=== PATIENT | female | born 1950 | race Caucasian/White ===

== ENCOUNTER 2017-11-07 10:34 | Outpatient (CLI) | payer MEDICARE, SELFPAY ==
[2017-11-07 11:06] LABS: Absolute Basophil Count 0.01 k/cumm (0.0-0.2); Absolute Eosinophil Count 0.09 k/cumm (0.0-0.7); Absolute Lymphocyte Count 1.51 k/cumm (1.2-3.4); Absolute Monocyte Count 0.71 k/cumm (0.11-0.7); Basophils % 0.2; Eosinophils % 1.7; HGB 13.6 g/dL (12.0-15.5); Lymphocytes % 28.4; Mean Corpuscular Hemoglobin 28.3 pg (27.0-33.0); Mean Corpuscular Volume 83.2 fL (80-95); Mean Platelet Volume 9.3 fL (8.0-11.0); Monocytes % 13.3; Neutrophils % 56.4; Platelet Count 199 x1000/uL (130-400); RBC 4.81 m/cumm (4.00-5.20); RBC Distribution Width 13.9 % (11.7-14.6); White Blood Cell Count 5.32 k/cumm (4.4-10.8)
[2017-11-07 11:18] LABS: ALT 13 U/L (12-78); AST 15 U/L (15-37); Albumin 3.9 g/dL (3.4-5.0); Alkaline Phosphatase 119 U/L (46-116); Anion Gap 8.5 mmol/L (3-11); BUN 7 mg/dL (7-18); Bilirubin, Total 0.3 mg/dL (0.2-1.0); CO2 28.5 mmol/L (21.0-32.0); CREATININE 0.56 mg/dL (0.55-1.02); Chloride 104 mmol/L (98-107); Glucose 96 mg/dL (70-100); Potassium 4.2 mmol/L (3.5-5.1); Sodium 141 mmol/L (136-145); Total Protein 7.5 g/dL (6.4-8.2)
== END 2017-11-07 10:35 ==
PROVIDERS: PCP Physician Assistant Medical; Visit Provider Internal Medicine Hematology & Oncology
DX: C82.18 Follicular lymphoma grade II, lymph nodes of multiple sites (principal)
CPT/HCPCS: 36415; 80053; 85025

== ENCOUNTER 2018-01-02 09:07 | Outpatient (CLI) | payer MEDICARE, SELFPAY ==
[2018-01-02 10:02] LABS: Abs Immature Grans 0.01 k/cumm (0.0-0.09); Absolute Basophil Count 0.02 k/cumm (0.0-0.2); Absolute Eosinophil Count 0.08 k/cumm (0.0-0.7); Absolute Lymphocyte Count 1.57 k/cumm (1.2-3.4); Absolute Monocyte Count 0.64 k/cumm (0.11-0.7); Absolute Neutrophil Count 3.22 k/cumm (1.2-6.7); Basophils % 0.4; Eosinophils % 1.4; HGB 12.8 g/dL (12.0-15.5); Immature Grans % 0.2; Lymphocytes % 28.3; Mean Corp. HGB Concentration 32.8 g/dL (32.0-36.0); Mean Corpuscular Hemoglobin 28.3 pg (27.0-33.0); Mean Corpuscular Volume 86.1 fL (80-95); Mean Platelet Volume 9.8 fL (8.0-11.0); Monocytes % 11.6; Neutrophils % 58.1; Platelet Count 209 x1000/uL (130-400); RBC 4.53 m/cumm (4.00-5.20); RBC Distribution Width 14.7 % (11.7-14.6); White Blood Cell Count 5.54 k/cumm (4.4-10.8)
[2018-01-02 10:22] LABS: ALT 14 U/L (12-78); AST 14 U/L (15-37); Albumin 3.7 g/dL (3.4-5.0); Alkaline Phosphatase 127 U/L (46-116); Anion Gap 9.4 mmol/L (3-11); BUN 12 mg/dL (7-18); Bilirubin, Total 0.3 mg/dL (0.2-1.0); CO2 28.6 mmol/L (21.0-32.0); CREATININE 0.48 mg/dL (0.55-1.02); Calcium 9.1 mg/dL (8.5-10.1); Chloride 104 mmol/L (98-107); Glucose 97 mg/dL (70-100); LDH 164 U/L (81-234); Potassium 4.2 mmol/L (3.5-5.1); Sodium 142 mmol/L (136-145); Total Protein 6.9 g/dL (6.4-8.2)
== END 2018-01-02 09:27 ==
PROVIDERS: PCP Physician Assistant Medical; Visit Provider Internal Medicine Hematology & Oncology
DX: C82.18 Follicular lymphoma grade II, lymph nodes of multiple sites (principal)
CPT/HCPCS: 80053; 83615; 85025

== ENCOUNTER 2018-03-06 09:20 | Outpatient (CLI) | payer MEDICARE, SELFPAY ==
[2018-03-06 09:52] LABS: Abs Immature Grans 0.01 k/cumm (0.0-0.09); Absolute Basophil Count 0.02 k/cumm (0.0-0.2); Absolute Eosinophil Count 0.08 k/cumm (0.0-0.7); Absolute Lymphocyte Count 1.71 k/cumm (1.2-3.4); Absolute Monocyte Count 0.57 k/cumm (0.11-0.7); Absolute Neutrophil Count 3.37 k/cumm (1.2-6.7); Basophils % 0.3; Eosinophils % 1.4; HCT 39.2 % (36.0-46.0); HGB 13.1 g/dL (12.0-15.5); Immature Grans % 0.2; Lymphocytes % 29.7; Mean Corp. HGB Concentration 33.4 g/dL (32.0-36.0); Mean Corpuscular Hemoglobin 29.2 pg (27.0-33.0); Mean Corpuscular Volume 87.3 fL (80-95); Mean Platelet Volume 9.2 fL (8.0-11.0); Monocytes % 9.9; Neutrophils % 58.5; Platelet Count 217 x1000/uL (130-400); RBC 4.49 m/cumm (4.00-5.20); RBC Distribution Width 13.5 % (11.7-14.6); White Blood Cell Count 5.76 k/cumm (4.4-10.8)
[2018-03-06 10:06] LABS: ALT 24 U/L (12-78); AST 18 U/L (15-37); Albumin 3.6 g/dL (3.4-5.0); Alkaline Phosphatase 148 U/L (46-116); Anion Gap 10.3 mmol/L (3-11); BUN 11 mg/dL (7-18); Bilirubin, Total 0.2 mg/dL (0.2-1.0); CO2 28.7 mmol/L (21.0-32.0); CREATININE 0.55 mg/dL (0.55-1.02); Chloride 103 mmol/L (98-107); Glucose 114 mg/dL (70-100); LDH 160 U/L (81-234); Sodium 142 mmol/L (136-145); Total Protein 7.1 g/dL (6.4-8.2)
== END 2018-03-06 09:40 ==
PROVIDERS: PCP Physician Assistant Medical; Visit Provider Internal Medicine Hematology & Oncology
DX: C82.18 Follicular lymphoma grade II, lymph nodes of multiple sites (principal)
CPT/HCPCS: 36415; 80053; 83615; 85025

== ENCOUNTER 2018-05-01 10:22 | Outpatient (CLI) | payer MEDICARE, SELFPAY ==
[2018-05-01 11:01] LABS: Absolute Basophil Count 0.01 k/cumm (0.0-0.2); Absolute Eosinophil Count 0.09 k/cumm (0.0-0.7); Absolute Neutrophil Count 2.68 k/cumm (1.2-6.7); Basophils % 0.2; Eosinophils % 1.8; HCT 38.2 % (36.0-46.0); HGB 12.6 g/dL (12.0-15.5); Lymphocytes % 31.5; Mean Corpuscular Hemoglobin 28.6 pg (27.0-33.0); Mean Corpuscular Volume 86.8 fL (80-95); Mean Platelet Volume 9.2 fL (8.0-11.0); Monocytes % 13.8; Neutrophils % 52.7; Platelet Count 229 x1000/uL (130-400); RBC Distribution Width 13.1 % (11.7-14.6); White Blood Cell Count 5.08 k/cumm (4.4-10.8)
[2018-05-01 11:14] LABS: ALT 15 U/L (12-78); AST 18 U/L (15-37); Albumin 3.5 g/dL (3.4-5.0); Alkaline Phosphatase 116 U/L (46-116); Anion Gap 5.4 mmol/L (3-11); BUN 11 mg/dL (7-18); Bilirubin, Total 0.2 mg/dL (0.2-1.0); CO2 31.6 mmol/L (21.0-32.0); CREATININE 0.62 mg/dL (0.55-1.02); Calcium 8.9 mg/dL (8.5-10.1); Chloride 104 mmol/L (98-107); Glucose 91 mg/dL (70-100); LDH 149 U/L (81-234); Sodium 141 mmol/L (136-145); Total Protein 6.9 g/dL (6.4-8.2)
== END 2018-05-01 10:42 ==
PROVIDERS: PCP Physician Assistant Medical; Visit Provider Nurse Practitioner Family
DX: C82.18 Follicular lymphoma grade II, lymph nodes of multiple sites (principal)
CPT/HCPCS: 36415; 80053; 83615; 85025

== ENCOUNTER 2018-08-07 09:34 | Outpatient (CLI) | payer MEDICARE, SELFPAY ==
[2018-08-07 10:22] LABS: Abs Immature Grans 0.01 k/cumm (0.0-0.09); Absolute Basophil Count 0.01 k/cumm (0.0-0.2); Absolute Eosinophil Count 0.16 k/cumm (0.0-0.7); Absolute Lymphocyte Count 1.35 k/cumm (1.2-3.4); Absolute Monocyte Count 0.41 k/cumm (0.11-0.7); Absolute Neutrophil Count 3.39 k/cumm (1.2-6.7); Basophils % 0.2; HCT 39.5 % (36.0-46.0); HGB 13.1 g/dL (12.0-15.5); Immature Grans % 0.2; Lymphocytes % 25.3; Mean Corp. HGB Concentration 33.2 g/dL (32.0-36.0); Mean Corpuscular Hemoglobin 28.6 pg (27.0-33.0); Mean Corpuscular Volume 86.2 fL (80-95); Monocytes % 7.7; Neutrophils % 63.6; Platelet Count 241 x1000/uL (130-400); RBC 4.58 m/cumm (4.00-5.20); RBC Distribution Width 13.8 % (11.7-14.6); White Blood Cell Count 5.33 k/cumm (4.4-10.8)
[2018-08-07 10:44] LABS: ALT 20 U/L (12-78); AST 18 U/L (15-37); Albumin 3.6 g/dL (3.4-5.0); Alkaline Phosphatase 128 U/L (46-116); Anion Gap 8.5 mmol/L (3-11); BUN 15 mg/dL (7-18); Bilirubin, Total 0.2 mg/dL (0.2-1.0); CO2 27.5 mmol/L (21.0-32.0); CREATININE 0.57 mg/dL (0.55-1.02); Calcium 9.1 mg/dL (8.5-10.1); Chloride 103 mmol/L (98-107); Glucose 121 mg/dL (70-100); LDH 150 U/L (81-234); Potassium 4.1 mmol/L (3.5-5.1); Sodium 139 mmol/L (136-145); Total Protein 7.2 g/dL (6.4-8.2)
== END 2018-08-07 09:54 ==
PROVIDERS: PCP Physician Assistant Medical; Visit Provider Internal Medicine Hematology & Oncology
DX: C82.18 Follicular lymphoma grade II, lymph nodes of multiple sites (principal)
CPT/HCPCS: 36415; 80053; 83615; 85025

== ENCOUNTER 2024-06-18 02:13 | Outpatient (RCR) | payer MEDICARE, SELFPAY ==
[2024-06-18 08:19] LABS: Abs Immature Grans 0.03 10^3/uL (0.0-0.06); Absolute Basophil Count 0.02 10^3/uL (0.0-0.2); Absolute Eosinophil Count 0.07 10^3/uL (0.0-0.7); Absolute Lymphocyte Count 1.02 10^3/uL (1.2-3.4); Absolute Monocyte Count 0.36 10^3/uL (0.1-0.8); Absolute Neutrophil Count 5.95 10^3/uL (1.2-6.7); Basophils % 0.3 %; Eosinophils % 0.9 %; HGB 14.4 g/dL (11.2-15.7); Immature Grans % 0.4 %; Lymphocytes % 13.7 %; MCH 29.2 pg (27.0-33.0); MCHC 33.5 % (32.0-36.0); MCV 87 fL (80-95); MPV 9.2 fL (8.0-11.0); Monocytes % 4.8 %; Neutrophils % 79.9 %; Platelet Count 196 10^3/uL (130-400); RBC 4.93 10^6/uL (3.93-5.22); RDW 13.2 % (11.7-14.6); RDW-SD 41.8 fL; WBC 7.45 10^3/uL (4.4-10.8)
[2024-06-18 08:37] LABS: ALT 20 U/L (14-59); AST 13 U/L (15-37); Albumin 3.6 g/dL (3.4-5.0); Alkaline Phosphatase 117 U/L (46-116); Anion Gap 10.6 mmol/L (3-11); BUN 5 mg/dL (7-18); Bilirubin, Total 0.5 mg/dL (0.2-1.0); CO2 27.4 mmol/L (21.0-32.0); CREATININE 0.8 mg/dL (0.55-1.02); Calcium 9.5 mg/dL (8.5-10.1); Chloride 105 mmol/L (98-107); Estimated GFR 77.75 (mL/min/1.73m2); Glucose 172 mg/dL (74-106); LDH 150 U/L (81-234); Potassium 3.7 mmol/L (3.5-5.1); Sodium 143 mmol/L (136-145); Total Protein 7.1 g/dL (6.4-8.2)
[2024-06-18] MEDS: Normal Saline Flush 10 ML SYR IVP (08:41)
== END 2024-06-23 23:59 | disposition home or self-care (01) ==
LOC: INF 02:13
PROVIDERS: PCP Physician Assistant Medical; Visit Provider Internal Medicine Hematology & Oncology
DX: C82.18 Follicular lymphoma grade II, lymph nodes of multiple sites (principal)
CPT/HCPCS: 36591; 80053; 83615; 85025

== ENCOUNTER 2024-07-23 01:24 | Outpatient (RCR) | payer MEDICARE, SELFPAY ==
[2024-07-09 10:19] LABS: Abs Immature Grans 0.02 10^3/uL (0.0-0.06); Absolute Basophil Count 0.04 10^3/uL (0.0-0.2); Absolute Eosinophil Count 0.16 10^3/uL (0.0-0.7); Absolute Lymphocyte Count 0.57 10^3/uL (1.2-3.4); Absolute Monocyte Count 0.54 10^3/uL (0.1-0.8); Absolute Neutrophil Count 5.14 10^3/uL (1.2-6.7); Basophils % 0.6 %; Eosinophils % 2.5 %; HCT 41.6 % (36.0-46.0); HGB 13.9 g/dL (11.2-15.7); Immature Grans % 0.3 %; Lymphocytes % 8.8 %; MCHC 33.4 % (32.0-36.0); MCV 87 fL (80-95); MPV 9.1 fL (8.0-11.0); Monocytes % 8.3 %; Neutrophils % 79.5 %; Platelet Count 195 10^3/uL (130-400); RBC 4.79 10^6/uL (3.93-5.22); RDW 13.5 % (11.7-14.6); RDW-SD 42.4 fL; WBC 6.47 10^3/uL (4.4-10.8)
[2024-07-09] MEDS: Normal Saline Flush 10 ML SYR IVP (10:22)
[2024-07-09 10:34] LABS: ALT 21 U/L (14-59); AST 15 U/L (15-37); Albumin 3.4 g/dL (3.4-5.0); Alkaline Phosphatase 114 U/L (46-116); Anion Gap 8.8 mmol/L (3-11); BUN 9 mg/dL (7-18); Bilirubin, Total 0.4 mg/dL (0.2-1.0); CO2 27.2 mmol/L (21.0-32.0); CREATININE 0.8 mg/dL (0.55-1.02); Calcium 9.3 mg/dL (8.5-10.1); Chloride 105 mmol/L (98-107); Estimated GFR 77.27 (mL/min/1.73m2); Glucose 188 mg/dL (74-106); LDH 139 U/L (81-234); Potassium 3.7 mmol/L (3.5-5.1); Sodium 141 mmol/L (136-145); Total Protein 6.9 g/dL (6.4-8.2)
[2024-07-23] MEDS: Normal Saline Flush 10 ML SYR IVP (09:18)
[2024-07-23 09:41] LABS: Abs Immature Grans 0.01 10^3/uL (0.0-0.06); Absolute Basophil Count 0.03 10^3/uL (0.0-0.2); Absolute Eosinophil Count 0.18 10^3/uL (0.0-0.7); Absolute Lymphocyte Count 0.59 10^3/uL (1.2-3.4); Absolute Monocyte Count 0.45 10^3/uL (0.1-0.8); Basophils % 0.6 %; Eosinophils % 3.8 %; HCT 39.9 % (36.0-46.0); HGB 13.5 g/dL (11.2-15.7); Immature Grans % 0.2 %; Lymphocytes % 12.4 %; MCH 29.6 pg (27.0-33.0); MCHC 33.8 % (32.0-36.0); MCV 88 fL (80-95); MPV 9.1 fL (8.0-11.0); Monocytes % 9.5 %; Neutrophils % 73.5 %; Platelet Count 150 10^3/uL (130-400); RBC 4.56 10^6/uL (3.93-5.22); RDW 13.4 % (11.7-14.6); RDW-SD 42.9 fL; WBC 4.76 10^3/uL (4.4-10.8)
[2024-07-23 09:58] LABS: ALT 22 U/L (14-59); AST 19 U/L (15-37); Albumin 3.5 g/dL (3.4-5.0); Alkaline Phosphatase 109 U/L (46-116); Anion Gap 10.8 mmol/L (3-11); BUN 9 mg/dL (7-18); Bilirubin, Total 0.4 mg/dL (0.2-1.0); CO2 26.2 mmol/L (21.0-32.0); CREATININE 0.7 mg/dL (0.55-1.02); Calcium 9.1 mg/dL (8.5-10.1); Chloride 105 mmol/L (98-107); Glucose 199 mg/dL (74-106); Potassium 3.8 mmol/L (3.5-5.1); Sodium 142 mmol/L (136-145); Total Protein 6.8 g/dL (6.4-8.2)
[2024-07-23 10:26] LABS: LDH 147 U/L (81-234)
== END 2024-07-23 23:59 | disposition home or self-care (01) ==
LOC: INF 01:24
PROVIDERS: PCP Physician Assistant Medical; Visit Provider Internal Medicine Hematology & Oncology
DX: C82.18 Follicular lymphoma grade II, lymph nodes of multiple sites (principal); Z45.2 Encounter for adjustment and management of vascular access device
CPT/HCPCS: 36591; 80053; 83615; 85025

== ENCOUNTER 2024-08-15 16:52 | Emergency (ER) | payer MEDICARE, SELFPAY ==
[2024-08-15] VITALS (18 sets, daily range): BP systolic 116–138; BP diastolic 74–82; PULSE 63–83; RESP 16–19; TEMP 36.7–36.8; O2SAT 95–98
--- NOTE | 2024-08-15 17:00 | RT.EKG_ITS ---
APPROVED REPORT Exam: Resting ECG Reason for Exam: chest pain Patient Location: E HR:76 bpm ECG Measurements Heart Rate 76 AXIS MN 179 P 51 QRSd 91 QRS -90 QT 405 T 57 QTc 456 Conclusion Sinus rhythm...normal P axis, V-rate 60- 99 Left anterior fascicular block...axis(240,-40), init forces inf Consider anterior infarct...Q >30mS in V2-V5 No Occlusion DE
--- NOTE | 2024-08-15 19:10 | ED.GENADUL_ITS ---
Discharge Plan Disposition Patient Disposition: Home Condition: Stable Discharge Details Clinical Impression: Chest pain Primary Care Provider: Roro Colmenares ED Provider: Dina Clemens Home Meds and New Rx's Prescriptions: New lidocaine [Lidoderm] 5 % adhesive patch,medicated 1 patch topical DAILY Qty: 30 0RF Rx Instructions: leave on most painful area for up to 12 hrs Discharge Instructions Instructions: Chest Pain, Adult ED Additional Instructions: You were seen in the emergency department today for evaluation of left-sided chest pain. In our department a full physical examination performed, had a reassuring EKG and negative cardiac enzymes. We did an x-ray of your chest that did not show any abnormalities and specifically noted your port to be in the correct location. You had a negative test for blood clots and at this time I am most concerned for a musculoskeletal etiology of your pain. I have sent a prescription for lidocaine patches to your pharmacy and I think that you should continue to use Tylenol and ibuprofen as needed for management of pain. Please follow-up with your primary care provider in the next few days to discuss this visit and any symptoms that change, worsen, or persist. Thank you for allowing us to be part of your care. HPI General Mode of arrival: ambulatory . Date/Time Provider Initiated Documentation: 08/15/24 17:20 . Limitations to Documentation: no limitations . Information obtained by: patient, family and old records reviewed . HPI Narrative: This is a 74-year-old female patient with a history of non-Hodgkin's lymphoma on chemotherapy, with a recent right chest port placed, presenting for evaluation of approximately 4 days of sharp left-sided chest pain. She reports that this pain comes and goes, she has identified exacerbating features including movement, lifting her arm. She states she has not noted any change in her pain with deep breath or position. She has not tried any medications for this pain. She was concerned that her port had migrated to the wrong location. She states that she has otherwise been without fever, she does not have any cough or hemoptysis. No nausea or diaphoresis. Has a scheduled appointment with her chemotherapy team on Sunday. Related Data Home Medications ?Medication ?Instructions ?Recorded ?Confirmed lidocaine 5 % topical patch 1 patch topical DAILY #30 ea 08/15/24 (Lidoderm) Previous Rx's ?Medication ?Instructions ?Recorded lidocaine 5 % topical patch 1 patch topical DAILY #30 ea 08/15/24 (Lidoderm) Allergies Allergy/AdvReac Type Severity Reaction Status Date / Time No Known Allergies Allergy Unverified 08/15/24 20:46 General Stated Complaint: Chest Pain ELEAZAR: 3 Exam Narrative Exam Narrative: Gen: awake and alert, in no apparent distress. Appears well nourished. HEENT: PERRL, EOMs full and without nystagmus. External ears and nose normal, mucous membranes moist. Neck: Supple, full range of motion, no observable masses Lungs: No increased work of breathing, lung sounds clear and equal bilaterally without wheezes, rhonchi, or rales. CV: Heart with regular rate and rhythm, no murmurs auscultated. Strong and symmetrical radial pulses. The patient has no skin changes overlying the left chest pain, but does have point tenderness over the lateral left ribs to palpation. Abdomen: Soft, nondistended, non-tender to palpation. No rigidity, rebound tenderness, or guarding. MSK: No joint swelling, no redness. Full ROM without limitation, no external traumatic findings. No unilateral calf swelling or tenderness Skin: No rashes or lesions to visualized skin. Normal color, warm, and dry. Neuro: Cranial nerves II-XII intact and symmetrical bilaterally. 5/5 strength in all muscle groups x4 extremities. No sensory deficits. Ambulates with steady gait. Psych: Appropriate for situation. Course Vital Signs Vital signs: Vital Signs Temperature 36.7 C 08/15/24 17:09 Pulse 83 08/15/24 17:09 Respiratory Rate 16 08/15/24 17:09 Blood Pressure 138/77 08/15/24 17:09 Pulse Oximetry 95 08/15/24 17:09 Temperature 36.8 C 08/15/24 18:17 Temperature Source Oral 08/15/24 18:17 Pulse 74 08/15/24 18:17 Respiratory Rate 16 08/15/24 18:17 Blood Pressure 116/79 08/15/24 18:17 Blood Pressure Mean 91 08/15/24 18:17 Pulse Oximetry 96 08/15/24 18:17 Oxygen Delivery Method Room Air 08/15/24 18:17 Oxygen Flow Rate 0 08/15/24 18:17 Pain Level 0 08/15/24 18:17 Medical Decision Making This is a 74-year-old female patient presenting for evaluation of 4 days of left-sided chest pain. My differential includes but is not limited to ACS including STEMI, NSTEMI, unstable angina, certainly considered arrhythmia, pericarditis/myocarditis, aortic pathology. Considered pulmonary abnormalities including pneumonia, bronchitis, pleural effusion, pulmonary edema, reactive airway disease, pneumothorax. The patient is without tachycardia, hypoxia, or a pleuritic component to his pain to significantly increase my concern for pulmonary embolism, though she does have cancer and does not meet PERC criteria for rule out due to her age.. No GI symptoms or vomiting to suggest Boerhaave's, esophagitis, peptic ulcer disease, pancreatitis. Considered musculoskeletal pathologies including costochondritis, chest wall pain given the reproducibility of the pain. I think that it would be unlikely that the patient's port had migrated but certainly indwelling line issues were considered. We will obtain laboratory studies to include CBC, CMP, magnesium, troponin, BNP, D-dimer, and will obtain a chest x-ray. I reviewed the patient's EKG, which shows no evidence of acute ischemia, interval abnormality, or ectopy. No significant changes when compared to priors. -I independently interpreted the laboratory studies, which show no significant leukocytosis, anemia, or thrombocytopenia. The chemistry panel is without evidence of significant electrolyte abnormality, kidney dysfunction, or liver injury. Troponin was negative and without interval increase on 1 hour delta recheck. BNP is low. The D-dimer is below the years criteria cutoff of 1000 given the patient's risk characteristics, and can be excluded per that protocol. Additionally, she remains without vital sign abnormalities, and states that her pain is improved with topical treatments including Lidoderm as well as Tylenol. Chest x-ray reviewed by myself, showing moderate hyperinflation which may be investment representative of reactive airway disease exacerbation, Port-A-Cath is in the appropriate position and no other abnormalities to account for the patient's symptoms. I am most concerned for musculoskeletal etiologies given the reproducible nature of the patient's pain. I provided her with a prescription for Lidoderm patches and recommended close outpatient follow-up. At this time, the patient has had a full medical evaluation and is safe for discharge to home. They are hemodynamically stable, ambulatory, and tolerating PO. They are understanding of the follow-up plan and return precautions. They left our facility without incident. Dina Clemens MD Quality:SDOH Health Related Social Needs: No Data to Display PFSH All Active Problems (Updated 08/15/24 @ 21:05 by Dina Clemens MD) Chest pain (Acute) Social History Smoking risk assessment performed?: No
[2024-08-15] MEDS: Lidocaine 5% Patch 1 PATCH TP (19:30)
[2024-08-15] MEDS: Acetaminophen 500 MG TAB 1000 MG PO (19:30)
[2024-08-15 19:42] LABS: Abs Immature Grans 0.01 10^3/uL (0.0-0.06); Absolute Basophil Count 0.03 10^3/uL (0.0-0.2); Absolute Eosinophil Count 0.17 10^3/uL (0.0-0.7); Absolute Lymphocyte Count 0.87 10^3/uL (1.2-3.4); Absolute Monocyte Count 0.65 10^3/uL (0.1-0.8); Absolute Neutrophil Count 2.99 10^3/uL (1.2-6.7); Basophils % 0.6 %; Eosinophils % 3.6 %; HGB 12.9 g/dL (11.2-15.7); Immature Grans % 0.2 %; Lymphocytes % 18.4 %; MCH 29.9 pg (27.0-33.0); MCHC 34.9 % (32.0-36.0); MCV 86 fL (80-95); MPV 8.7 fL (8.0-11.0); Monocytes % 13.8 %; Neutrophils % 63.4 %; Platelet Count 205 10^3/uL (130-400); RBC 4.32 10^6/uL (3.93-5.22); RDW 14.4 % (11.7-14.6); RDW-SD 44.6 fL; WBC 4.72 10^3/uL (4.4-10.8)
--- NOTE | 2024-08-15 19:57 | DI.RAD_ITS ---
Exam(s) XR CHEST 2V PA LATERAL EXAM: XR CHEST 2V PA LATERAL CLINICAL HISTORY: Chest pain TECHNIQUE: 2D digital imaging was performed. Two views. COMPARISON: No exams were available for comparison FINDINGS: HEART: Normal size. Aorta: Not dilated. PULMONARY VASCULATURE: Normal. MEDIASTINUM: Unremarkable. LUNGS: Clear. PLEURAL SPACE: No pleural effusion or pneumothorax. BONE:Degenerative changes. Slight anterior wedging of midthoracic vertebral bodies. SOFT TISSUES: A port is noted over the right chest with tip in upper right atrium. IMPRESSION: No acute abnormality. The preliminary [facility] report was reviewed. DATA REPOSITORY: RADIATION DOSE DELIVERED:
[2024-08-15 20:10] LABS: ALT 15 U/L (14-59); AST 16 U/L (15-37); Albumin 3.4 g/dL (3.4-5.0); Alkaline Phosphatase 108 U/L (46-116); Anion Gap 6.2 mmol/L (3-11); BUN 8 mg/dL (7-18); Bilirubin, Total 0.4 mg/dL (0.2-1.0); CO2 28.8 mmol/L (21.0-32.0); CREATININE 0.6 mg/dL (0.55-1.02); Calcium 9.5 mg/dL (8.5-10.1); Chloride 104 mmol/L (98-107); Estimated GFR 94.13 (mL/min/1.73m2); Glucose 126 mg/dL (74-106); Magnesium 2.1 mg/dL (1.8-2.4); NT-proBNP 74 pg/mL (<300); Potassium 3.4 mmol/L (3.5-5.1); Sodium 139 mmol/L (136-145); Total Protein 6.8 g/dL (6.4-8.2); Troponin I 9 ng/L (<or=51)
[2024-08-15 20:15] LABS: D-Dimer 674 ng/mlFEU (<500)
[2024-08-15 20:56] LABS: Troponin I 5 ng/L (<or=51)
--- NOTE | 2024-08-15 20:57 | DI.[facility]_ITS ---
PROCEDURE INFORMATION: Exam: XR Chest Exam date and time: 08/15/2024 7:57 PM Age: 74 years old Clinical indication: Other: Chest pain TECHNIQUE: Imaging protocol: Radiologic exam of the chest. Views: 2 views. COMPARISON: No relevant prior studies available. FINDINGS: Tubes, catheters and devices: Right chest/IJ Port-A-Cath in position. Lungs: Moderate bilateral hyperinflation suggesting underlying emphysema/COPD. No acute lung infiltrates. Pleural spaces: No pleural effusion. No pneumothorax. Heart/Mediastinum: Normal heart size. No mediastinal widening. Bones/joints: Degenerative thoracolumbar spine. IMPRESSION: 1. No acute findings. 2. Emphysema/COPD. 3. Degenerative thoracolumbar spine. 4. Right chest/IJ Port-A-Cath in position. Dictated and Authenticated by: Bong Donato MD. Orderin [facility] Miguel Ángel Arroyo MD
--- NOTE | 2024-08-16 08:53 | NUR.NOTE ---
Access chart to get the PCP to send prior authorization for lidocaine 5% patches to them. Nursing Note:
--- NOTE | 2024-08-19 08:39 | NUR.NOTE ---
Accessed Pt chart to locate who her Primary Care Provider is for an authorization request. Roro Colmenares is listed and form will be faxed to her office.
--- NOTE | 2024-08-21 08:57 | NUR.NOTE ---
Access chart to get the PCP to send prior authorization for Lidocaine 5% patches to them for review. Nursing Note:
== END 2024-08-15 21:28 | disposition home or self-care (01) ==
PROVIDERS: Emergency Provider Emergency Medicine; PCP Physician Assistant Medical
DX: R07.9 Chest pain, unspecified (principal); C85.90 Non-Hodgkin lymphoma, unspecified, unspecified site; Z92.21 Personal history of antineoplastic chemotherapy; Z95.828 Presence of other vascular implants and grafts
CPT/HCPCS: 80053; 93005; 99285; 71046; 83735; 83880; 84484; 85025; 85379; 93010; 99284

== ENCOUNTER 2024-08-20 01:07 | Outpatient (RCR) | payer MEDICARE, SELFPAY ==
[2024-08-20] MEDS: Normal Saline Flush 10 ML SYR IVP (07:06)
[2024-08-20 07:11] LABS: Abs Immature Grans 0.02 10^3/uL (0.0-0.06); Absolute Basophil Count 0.03 10^3/uL (0.0-0.2); Absolute Eosinophil Count 0.15 10^3/uL (0.0-0.7); Absolute Lymphocyte Count 0.73 10^3/uL (1.2-3.4); Absolute Monocyte Count 0.53 10^3/uL (0.1-0.8); Basophils % 0.6 %; HCT 38.8 % (36.0-46.0); HGB 13.2 g/dL (11.2-15.7); Immature Grans % 0.4 %; Lymphocytes % 14.4 %; MCH 29.7 pg (27.0-33.0); MCV 87 fL (80-95); MPV 8.6 fL (8.0-11.0); Monocytes % 10.5 %; Neutrophils % 71.1 %; Platelet Count 179 10^3/uL (130-400); RBC 4.44 10^6/uL (3.93-5.22); RDW 14.6 % (11.7-14.6); RDW-SD 45.6 fL; WBC 5.06 10^3/uL (4.4-10.8)
[2024-08-20 07:26] LABS: ALT 15 U/L (14-59); AST 15 U/L (15-37); Albumin 3.4 g/dL (3.4-5.0); Alkaline Phosphatase 125 U/L (46-116); Anion Gap 9.2 mmol/L (3-11); BUN 9 mg/dL (7-18); Bilirubin, Total 0.4 mg/dL (0.2-1.0); CO2 28.8 mmol/L (21.0-32.0); CREATININE 0.7 mg/dL (0.55-1.02); Calcium 9.4 mg/dL (8.5-10.1); Chloride 102 mmol/L (98-107); Glucose 158 mg/dL (74-106); LDH 159 U/L (81-234); Potassium 3.8 mmol/L (3.5-5.1); Sodium 140 mmol/L (136-145); Total Protein 6.7 g/dL (6.4-8.2)
== END 2024-08-23 23:59 | disposition home or self-care (01) ==
LOC: INF 01:07
PROVIDERS: PCP Physician Assistant Medical; Visit Provider Internal Medicine Hematology & Oncology
DX: C82.18 Follicular lymphoma grade II, lymph nodes of multiple sites (principal); Z45.2 Encounter for adjustment and management of vascular access device
CPT/HCPCS: 36591; 80053; 83615; 85025

== ENCOUNTER 2024-09-17 01:07 | Outpatient (RCR) | payer MEDICARE, SELFPAY ==
[2024-09-17] MEDS: Normal Saline Flush 10 ML SYR IVP (08:08)
[2024-09-17 08:36] LABS: Abs Immature Grans 0.02 10^3/uL (0.0-0.06); Absolute Basophil Count 0.04 10^3/uL (0.0-0.2); Absolute Eosinophil Count 0.15 10^3/uL (0.0-0.7); Absolute Monocyte Count 0.49 10^3/uL (0.1-0.8); Absolute Neutrophil Count 3.57 10^3/uL (1.2-6.7); Basophils % 0.8 %; Eosinophils % 2.9 %; HCT 37.9 % (36.0-46.0); HGB 12.9 g/dL (11.2-15.7); Immature Grans % 0.4 %; Lymphocytes % 17.4 %; MCH 30.1 pg (27.0-33.0); MCV 88 fL (80-95); MPV 8.8 fL (8.0-11.0); Monocytes % 9.5 %; Platelet Count 177 10^3/uL (130-400); RBC 4.29 10^6/uL (3.93-5.22); RDW 14.5 % (11.7-14.6); RDW-SD 46.5 fL; WBC 5.17 10^3/uL (4.4-10.8)
[2024-09-17 08:50] LABS: ALT 20 U/L (14-59); AST 17 U/L (15-37); Albumin 3.6 g/dL (3.4-5.0); Alkaline Phosphatase 101 U/L (46-116); Anion Gap 8.9 mmol/L (3-11); BUN 7 mg/dL (7-18); Bilirubin, Total 0.5 mg/dL (0.2-1.0); CO2 27.1 mmol/L (21.0-32.0); CREATININE 0.7 mg/dL (0.55-1.02); Calcium 9.1 mg/dL (8.5-10.1); Chloride 104 mmol/L (98-107); Glucose 173 mg/dL (74-106); LDH 180 U/L (81-234); Potassium 3.6 mmol/L (3.5-5.1); Sodium 140 mmol/L (136-145)
== END 2024-09-22 23:59 | disposition home or self-care (01) ==
LOC: INF 01:07
PROVIDERS: PCP Physician Assistant Medical; Visit Provider Internal Medicine Hematology & Oncology
DX: C82.18 Follicular lymphoma grade II, lymph nodes of multiple sites (principal); Z45.2 Encounter for adjustment and management of vascular access device
CPT/HCPCS: 36591; 80053; 83615; 85025

== ENCOUNTER 2024-10-15 02:18 | Outpatient (RCR) | payer MEDICARE, SELFPAY ==
[2024-10-15] MEDS: Normal Saline Flush 10 ML SYR IVP (11:54)
[2024-10-15 12:01] LABS: Abs Immature Grans 0.02 10^3/uL (0.0-0.06); HCT 38.5 % (36.0-46.0); HGB 13.6 g/dL (11.2-15.7); Immature Grans % 0.4 %; MCH 31.4 pg (27.0-33.0); MCHC 35.3 % (32.0-36.0); MCV 89 fL (80-95); MPV 8.9 fL (8.0-11.0); Platelet Count 163 10^3/uL (130-400); RBC 4.33 10^6/uL (3.93-5.22); RDW 14.0 % (11.7-14.6); RDW-SD 45.2 fL; WBC 4.61 10^3/uL (4.4-10.8)
[2024-10-15 12:16] LABS: ALT 22 U/L (14-59); AST 22 U/L (15-37); Albumin 3.6 g/dL (3.4-5.0); Alkaline Phosphatase 105 U/L (46-116); Anion Gap 11.7 mmol/L (3-11); BUN 5 mg/dL (7-18); Bilirubin, Total 0.6 mg/dL (0.2-1.0); CO2 28.3 mmol/L (21.0-32.0); Calcium 9.3 mg/dL (8.5-10.1); Chloride 104 mmol/L (98-107); Estimated GFR 98.36 (mL/min/1.73m2); Glucose 185 mg/dL (74-106); LDH 202 U/L (81-234); Potassium 3.3 mmol/L (3.5-5.1); Sodium 144 mmol/L (136-145); Total Protein 6.8 g/dL (6.4-8.2)
== END 2024-10-23 23:59 | disposition home or self-care (01) ==
LOC: INF 02:18
PROVIDERS: PCP Physician Assistant Medical; Visit Provider Internal Medicine Hematology & Oncology
DX: C82.18 Follicular lymphoma grade II, lymph nodes of multiple sites (principal); Z45.2 Encounter for adjustment and management of vascular access device
CPT/HCPCS: 36591; 80053; 83615; 85025

== ENCOUNTER 2025-01-21 02:26 | Outpatient (RCR) | payer MEDICARE, SELFPAY ==
[2025-01-21 12:33] LABS: Abs Immature Grans 0.03 10^3/uL (0.0-0.06); HCT 45.3 % (36.0-46.0); HGB 16.1 g/dL (11.2-15.7); Immature Grans % 0.3 %; MCH 29.9 pg (27.0-33.0); MCHC 35.5 % (32.0-36.0); MCV 84 fL (80-95); MPV 8.8 fL (8.0-11.0); Platelet Count 289 10^3/uL (130-400); RBC 5.39 10^6/uL (3.93-5.22); RDW 13.1 % (11.7-14.6); RDW-SD 38.8 fL; WBC 10.06 10^3/uL (4.4-10.8)
[2025-01-21 12:42] LABS: ALT 20 U/L (14-59); AST 18 U/L (15-37); Albumin 3.9 g/dL (3.4-5.0); Alkaline Phosphatase 122 U/L (46-116); Anion Gap 15.5 mmol/L (3-11); BUN 13 mg/dL (7-18); Bilirubin, Total 0.8 mg/dL (0.2-1.0); CO2 21.5 mmol/L (21.0-32.0); Calcium 9.7 mg/dL (8.5-10.1); Chloride 100 mmol/L (98-107); Estimated GFR 90.70 (mL/min/1.73m2); Glucose 119 mg/dL (74-106); LDH 179 U/L (81-234); Potassium 3.1 mmol/L (3.5-5.1); Sodium 137 mmol/L (136-145); Total Protein 7.6 g/dL (6.4-8.2)
== END 2025-01-23 23:59 | disposition home or self-care (01) ==
LOC: INF 02:26
PROVIDERS: PCP Physician Assistant Medical; Visit Provider Internal Medicine Hematology & Oncology
DX: C82.18 Follicular lymphoma grade II, lymph nodes of multiple sites (principal)
CPT/HCPCS: 36415; 80053; 83615; 85025